=== PATIENT | male | born 1930 | race Hispanic/Latino ===

== ENCOUNTER 2017-06-05 20:59 | Emergency (ER) | payer MEDICARE ==
[2017-06-05] MEDS ORDERED: Lidocaine 1% 20 ML MDV ONE (21:20)
== END 2017-06-05 22:15 | disposition home or self-care (01) ==
LOC: SCSER 20:59
DX: L05.01 Pilonidal cyst with abscess (principal); E78.5 Hyperlipidemia, unspecified; I10 Essential (primary) hypertension; Z87.891 Personal history of nicotine dependence
CPT/HCPCS: 10080; J2001

== ENCOUNTER 2018-09-22 16:18 | Outpatient (CLI) | payer MEDICARE ==
--- NOTE | 2018-09-22 17:36 | RAD ---
LEFT KNEE THREE VIEWS: HISTORY: Not provided. COMPARISON: None. FINDINGS: There is a partial calcification in the suprapatellar region. Correlate for possible joint calcifica tion. Questionable loose body fragments in the Hoffa's fat pad. There is tricompartmental moderate degenerative change. There are no fractures. Extensive vascular calcification. IMPRESSION: Changes of the left knee joint space, as described above. MRI may be beneficial. POS: [facility]
== END 2018-09-22 16:19 | disposition home or self-care (01) ==
LOC: SCSRAD 16:18
PROVIDERS: ATTEND Family Medicine
DX: M25.562 Pain in left knee (principal); M17.12 Unilateral primary osteoarthritis, left knee